=== PATIENT | female | born 1960 | race Two or more races ===

== ENCOUNTER 2021-08-31 08:46 | Outpatient (CLI) | payer OTHER | END 2021-08-31 23:59 | disposition home or self-care (01) | LOC: LAB 08:46 | PROVIDERS: ATTEND Student in an Organized Health Care Education/Training Program | DX: Z01.812 Encounter for preprocedural laboratory examination (principal); Z20.822 Contact with and (suspected) exposure to COVID-19 | CPT/HCPCS: C9803; U0003 ==

== ENCOUNTER 2021-09-05 10:12 | Inpatient (IN) | payer OTHER ==
[~2021-09-05] VITALS: Ht 149.9 cm; Wt 54.4 kg
[2021-09-05] MEDS ORDERED: FENTANYL PF 250MCG/5ML AMPUL ONE (10:27)
[2021-09-05] MEDS ORDERED: HYDROMORPHONE INJ 2 MG/ML DISP.SYRIN ONE (10:27)
[2021-09-05] MEDS ORDERED: MIDAZOLAM HCL 2 MG/2ML VIAL ONE (10:27)
[2021-09-05] MEDS ORDERED: BUPIVACAINE 0.5 % PF 150 MG/30 ML VIAL ONE ×2 (10:28→13:05)
[2021-09-05] MEDS ORDERED: FAMOTIDINE/PF INJ 20 MG/2 ML VIAL IV ONE (10:28)
[2021-09-05] MEDS ORDERED: ROCURONIUM BROMIDE 50 MG/5 ML ONE (10:29)
[2021-09-05] MEDS ORDERED: ANESTHESIA TRAY IN PYXIS 1 EA TRAY MC ONE (10:38)
[2021-09-05] MEDS ORDERED: POLYMYXIN B SULFATE 500,000 UNITS ONE (10:39)
[2021-09-05] MEDS ORDERED: TRANEXAMIC ACID 1,000 MG in IV NS 0.9% 100 ML IV ONE (11:00)
[2021-09-05] MEDS ORDERED: HEMOSTATIC MATRIX 8 ML 1 EACH PAD MC ONE (13:06)
[2021-09-05] MEDS ORDERED: HYDROMORPHONE 1 MG/1 ML DISP.SYRIN ONE (15:25)
[2021-09-05] MEDS ORDERED: MORPHINE SULFATE INJ 4 MG/ML DISP.SYRIN IV PRN (16:00)
[2021-09-05 20:00] VITALS: BP 116/71
[2021-09-05] MEDS: CEFAZOLIN 2 GM in IV D5W 100 ML IV SCH (20:07)
[2021-09-06] MEDS: HYDROCODONE/APAP 10/325MG TABLET PO PRN ×4 (00:57→18:05)
[2021-09-06] MEDS: CEFAZOLIN 2 GM in IV D5W 100 ML IV SCH ×2 (04:39→11:40)
[2021-09-06] MEDS ORDERED: ACETAMINOPHEN 325 MG TABLET PO PRN (12:00)
[2021-09-06] MEDS ORDERED: ONDANSETRON HCL/PF 4 MG/2 ML VIAL IVP PRN (12:00)
[2021-09-06 12:36] LABS: BASOPHILS % (AUTO) 0.2 % (0.0-2.0); EOSINOPHILS % (AUTO) 0.5 % (0.0-6.0); HEMATOCRIT 35 % (33-45); HEMOGLOBIN 11.5 g/dL (11.5-14.8); LYMPHOCYTES # (AUTO) 1.7 K/uL (0.8-4.8); LYMPHOCYTES % (AUTO) 11.3 % (20.0-44.0); MEAN CORPUSCULAR HGB CONC 33 g/dl (31.0-36.0); MEAN CORPUSCULAR VOLUME 85 fL (82-100); MONOCYTES # (AUTO) 0.9 K/uL (0.1-1.30); NEUTROPHILS # (AUTO) 12.1 K/uL (1.8-8.9); PLATELET COUNT (AUTO) 249 K/uL (150-450); RED BLOOD CELL COUNT(AUTO) 4.08 MIL/uL (4.0-5.2); WHITE BLOOD COUNT (AUTO) 14.8 K/uL (4.3-11.0)
[2021-09-06 12:53] LABS: CALCIUM, SERUM 8.6 mg/dL (8.5-10.1); CREATININE 0.7 mg/dL (0.6-1.3); POTASSIUM 3.5 mmol/L (3.5-5.1)
[2021-09-06] MEDS ORDERED: ENOXAPARIN SODIUM 40 MG/0.4 ML DISP.SYRIN SQ SCH (15:00)
[2021-09-06] MEDS: IV NS 0.9% 1,000 ML IV PRN (15:36)
[2021-09-06 20:00] VITALS: BP 120/70
[2021-09-07] MEDS: HYDROCODONE/APAP 10/325MG TABLET PO PRN ×2 (01:19→11:28)
[2021-09-07] MEDS: IV NS 0.9% 1,000 ML IV PRN (06:10)
[2021-09-07 06:12] LABS: CALCIUM, SERUM 8.5 mg/dL (8.5-10.1); CREATININE 0.6 mg/dL (0.6-1.3); MAGNESIUM 2.1 mg/dL (1.8-2.4); PHOSPHORUS 2.9 mg/dL (2.5-4.9); POTASSIUM 3.6 mmol/L (3.5-5.1)
[2021-09-07 06:48] LABS: BASOPHILS % (AUTO) 0.4 % (0.0-2.0); EOSINOPHILS % (AUTO) 1.5 % (0.0-6.0); HEMATOCRIT 33 % (33-45); LYMPHOCYTES # (AUTO) 2.1 K/uL (0.8-4.8); MEAN CORPUSCULAR HGB CONC 34 g/dl (31.0-36.0); MEAN CORPUSCULAR VOLUME 85 fL (82-100); MONOCYTES # (AUTO) 0.9 K/uL (0.1-1.30); MONOCYTES % (AUTO) 7.7 % (2.0-12.0); NEUTROPHILS # (AUTO) 7.9 K/uL (1.8-8.9); NEUTROPHILS % (AUTO) 71.4 % (43.0-81.0); PLATELET COUNT (AUTO) 238 K/uL (150-450); RED BLOOD CELL COUNT(AUTO) 3.84 MIL/uL (4.0-5.2); WHITE BLOOD COUNT (AUTO) 11.1 K/uL (4.3-11.0)
[2021-09-07 08:00] VITALS: BP 174/72
[2021-09-07 14:32] VITALS: BP 128/89
== END 2021-09-07 14:45 | disposition home or self-care (01) | DRG 494 ==
LOC: DS 10:12 → MED 12:35
PROVIDERS: ADMIT Nurse Practitioner Acute Care; ATTEND Nurse Practitioner Acute Care
PROC: 0PSC04Z Reposition Right Humeral Head with Internal Fixation Device, Open Approach (ICD-10-PCS; principal; 2021-09-05)
DX: S42.201A Unspecified fracture of upper end of right humerus, initial encounter for closed fracture (principal); X58.XXXA Exposure to other specified factors, initial encounter; Y92.89 Other specified places as the place of occurrence of the external cause; Y99.9 Unspecified external cause status; D72.829 Elevated white blood cell count, unspecified
CPT/HCPCS: 36415; 73060-TC; 80048-TC; 80061-TC; 83735-TC; 84100-TC; 85025-TC; 87081-TC; A4217; A4565; A6209; C1713; G0378; J0690; J1170; J1650; J2250; J2405; J2704; J2765; J3010; J3490; J7030; J7040; J7060